=== PATIENT | male | born 1990 | race African-American/Black ===

== ENCOUNTER 2018-07-02 19:02 | Emergency (ER) | payer OTHER ==
--- NOTE | 2018-07-02 19:10 | EDPHY ---
H & P Stated Complaint: abd pain, nausea Time Seen by Provider: 07/02/18 19:09 - Personal History Current Tetanus Diphtheria and Acellular Pertussis (TDAP): Yes - Medical/Surgical History Hx Asthma: No Hx Chronic Respiratory Disease: No Hx Diabetes: No Hx Cardiac Disease: No Hx Renal Disease: No Hx Cirrhosis: No Hx Alcoholism: No Hx HIV/AIDS: No Hx Splenectomy or Spleen Trauma: No - Social History Smoking Status: Current every day smoker Constitutional: Initial Vital Signs Temperature (C) 36.9 C 07/02/18 19:05 Heart Rate 61 07/02/18 19:05 Respiratory Rate 20 07/02/18 19:05 Blood Pressure 132/72 H 07/02/18 19:05 O2 Sat (%) 100 07/02/18 19:05 O2 Delivery Mode Room Air Allergies/Adverse Reactions: No Known Allergies Allergy (Unverified 07/02/18 19:05) Home Medications: Medication Instructions Recorded Hydrocodone/APAP 5/325 [[place]t 1 - 2 each PO Q4-6PRN PRN #20 tab 07/02/18 5/325] Ondansetron Odt [Zofran Odt 4 mg 4 mg PO Q4 PRN #10 tab 07/02/18 (RX)] Medical Decision Making - Diagnostics Imaging Results: Imaging Impressions Abdomen CT 07/02/18 19:16 Impression: 1. Normal CT abdomen and pelvis with contrast enhancement. 2. No CT evidence of appendicitis, abscess or bowel obstruction. Findings discussed with Momo Madison MD at 20:11 hour, 07/02/2018. Imaging: Discussed imaging studies w/ call centre supervisor Radiologist, I viewed and interpreted images myself ED Course/Re-evaluation: CHIEF COMPLAINT: Abdominal pain HISTORY OF PRESENT ILLNESS: The patient is a 27 y/o male arriving with his family complaining of constant nausea and lower abdominal pain onset last night. He denies fever, diarrhea, recent illness, or recent trauma. He mentions his son recently had a vomiting illness. He is also requesting STI testing. REVIEW OF SYSTEMS: A comprehensive 10 system review of systems is otherwise negative aside from elements mentioned in the history of present illness and medical decision making. PHYSICAL EXAM: HR, BP, O2 Sat, RR. Temp noted General Appearance: Alert, well hydrated, appropriate, and non-toxic appearing. Head: Atraumatic without scalp tenderness or obvious injury Eyes: Pupils equal, round, reactive to light and accommodation, EOMI, no trauma , no injection. Nose: Atraumatic, no rhinorrhea, clear. Throat: Mucus membranes moist. Neck: Supple, nontender, no lymphadenopathy. Respiratory: No retractions, no distress, no wheezes, and no accessory muscle use. Lungs are clear to auscultation bilaterally. Cardiovascular: Regular rate and rhythm, no murmurs, rubs, or gallops. Good capillary refill all extremities. Gastrointestinal: Abdomen is soft, epigastric tenderness, non-distended, no masses, no rebound, no guarding, no peritoneal signs. Musculoskeletal: Normal active ROM of all extremities, atraumatic. Neurological: Alert, appropriate, and interactive. The patient has non-focal cranial nerves, motor, sensory, and cerebellar exam. Skin: No rashes, good turgor, no nodules on palpation. Past medical history: Denies Past surgical history: No abdominal surgeries Family history: Noncontributory Social history: and son at bedside. Lives in [place]. Student. DIAGNOSTICS/PROCEDURES/CRITICAL CARE TIME: Abdominal CT: nothing acute DIFFERENTIAL DIAGNOSIS: The differential diagnosis for the patient's abdominal pain included but was not limited to appendicitis, cholecystitis, hernias, testicular torsion, gastritis, and urinary tract infection. MEDICAL DECISION MAKING: This is a normally healthy 27 y/o male who presents with a 24-hour period of nausea and lower abdominal pain. He has epigastric tenderness on exam. Otherwise nothing acute. Plan for IV, labs, abdominal CT, and symptom management. 30mg IV Toradol, 1mg IV Dilaudid, 4mg IV Zofran, 1L IV NS ordered. CT is negative for acute process. Reevaluated patient and discussed findings. He is feeling improved. Recommended standard gastroenteritis care and follow up instructions. Return precautions discussed. He is comfortable with this plan. - Data Points Laboratory Results: Laboratory Results 07/02/18 19:30 07/02/18 19:30 07/02/18 07/02/18 07/02/18 19:33 19:30 19:30 WBC RBC Hgb POC Hgb 18.7 gm/dL H gm/dL (13.7-17.5) Hct POC Hct 55 % H % (40-51) MCV MCH MCHC RDW Plt Count MPV Neut % (Auto) Lymph % (Auto) Callaway % (Auto) Eos % (Auto) Baso % (Auto) Nucleat RBC Rel Count Absolute Neuts (auto) Absolute Lymphs (auto) Absolute Monos (auto) Absolute Eos (auto) Absolute Basos (auto) Absolute Nucleated RBC Immature Gran % Immature Gran # POC Sodium 141 mEq/L mEq/L (135-145) Sodium POC Potassium 4.2 mEq/L mEq/L (3.3-5.0) Potassium POC Chloride 98 mEq/L mEq/L (97-110) Chloride Carbon Dioxide Anion Gap POC BUN 6 mg/dL L mg/dL (7-23) BUN Creatinine POC Creatinine 1.5 mg/dL H mg/dL (0.7-1.3) Estimated GFR Glucose POC Glucose 108 mg/dL H mg/dL (70-100) Calcium Total Bilirubin Conjugated Bilirubin Unconjugated Bilirubin AST ALT Alkaline Phosphatase Total Protein Albumin Lipase RPR Resp to Therapy Pending HSV I&II IgM Ab Pending HIV 1&2 Antibody Pending 07/02/18 07/02/18 19:30 19:30 WBC 7.51 10^3/uL 10^3/uL (3.80-9.50) RBC 5.61 10^6/uL 10^6/uL (4.40-6.38) Hgb 17.3 g/dL g/dL (13.7-17.5) POC Hgb Hct 51.0 % % (40.0-51.0) POC Hct MCV 90.9 fL fL (81.5-99.8) MCH 30.8 pg pg (27.9-34.1) MCHC 33.9 g/dL g/dL (32.4-36.7) RDW 11.9 % % (11.5-15.2) Plt Count 236 10^3/uL 10^3/uL (150-400) MPV 10.5 fL fL (8.7-11.7) Neut % (Auto) 71.6 % % (39.3-74.2) Lymph % (Auto) 20.6 % % (15.0-45.0) Callaway % (Auto) 5.5 % % (4.5-13.0) Eos % (Auto) 1.7 % % (0.6-7.6) Baso % (Auto) 0.3 % % (0.3-1.7) Nucleat RBC Rel Count 0.0 % % (0.0-0.2) Absolute Neuts (auto) 5.38 10^3/uL 10^3/uL (1.70-6.50) Absolute Lymphs (auto) 1.55 10^3/uL 10^3/uL (1.00-3.00) Absolute Monos (auto) 0.41 10^3/uL 10^3/uL (0.30-0.80) Absolute Eos (auto) 0.13 10^3/uL 10^3/uL (0.03-0.40) Absolute Basos (auto) 0.02 10^3/uL 10^3/uL (0.02-0.10) Absolute Nucleated RBC 0.00 10^3/uL 10^3/uL (0-0.01) Immature Gran % 0.3 % % (0.0-1.1) Immature Gran # 0.02 10^3/uL 10^3/uL (0.00-0.10) POC Sodium Sodium 137 mEq/L mEq/L (135-145) POC Potassium Potassium 4.4 mEq/L mEq/L (3.3-5.0) POC Chloride Chloride 102 mEq/L mEq/L (97-110) Carbon Dioxide 26 mEq/l mEq/l (22-31) Anion Gap 9 mEq/L mEq/L (6-14) POC BUN BUN 7 mg/dL mg/dL (7-23) Creatinine 1.4 mg/dL H mg/dL (0.7-1.3) POC Creatinine Estimated GFR > 60 Glucose 110 mg/dL H mg/dL (70-100) POC Glucose Calcium 10.3 mg/dL mg/dL (8.5-10.4) Total Bilirubin 0.8 mg/dL mg/dL (0.1-1.4) Conjugated Bilirubin 0.2 mg/dL mg/dL (0.0-0.5) Unconjugated Bilirubin 0.6 mg/dL mg/dL (0.0-1.1) AST 41 IU/L IU/L (17-59) ALT 61 IU/L IU/L (21-72) Alkaline Phosphatase 94 IU/L IU/L (38-126) Total Protein 7.9 g/dL g/dL (6.3-8.2) Albumin 4.6 g/dL g/dL (3.5-5.0) Lipase 88 IU/L IU/L (23-300) RPR Resp to Therapy HSV I&II IgM Ab HIV 1&2 Antibody Medications Given: Discontinued Medications Hydromorphone HCl (Dilaudid) 1 mg IVP EDNOW ONE Stop: 07/02/18 19:17 Last Admin: 07/02/18 19:31 Dose: 1 mg Sodium Chloride (Ns) 1,000 mls @ 0 mls/hr IV EDNOW ONE; Wide Open PRN Reason: Protocol Stop: 07/02/18 19:17 Last Admin: 07/02/18 19:31 Dose: 1,000 mls Sodium Chloride (Ns) 1,000 mls @ 0 mls/hr IV EDNOW ONE; Wide Open PRN Reason: Protocol Stop: 07/02/18 19:39 Last Admin: 07/02/18 19:39 Dose: 1,000 mls Ketorolac Tromethamine (Toradol) 30 mg IVP EDNOW ONE Stop: 07/02/18 19:17 Last Admin: 07/02/18 19:31 Dose: 30 mg Ondansetron HCl (Zofran) 4 mg IVP EDNOW ONE Stop: 07/02/18 19:17 Last Admin: 07/02/18 19:31 Dose: 4 mg Point of Care Test Results: Chemistry 07/02/18 19:33 POC Sodium 141 mEq/L mEq/L (135-145) POC Potassium 4.2 mEq/L mEq/L (3.3-5.0) POC Chloride 98 mEq/L mEq/L (97-110) POC BUN 6 mg/dL L mg/dL (7-23) POC Creatinine 1.5 mg/dL H mg/dL (0.7-1.3) POC Glucose 108 mg/dL H mg/dL (70-100) ISTAT H&H 07/02/18 19:33 POC Hgb 18.7 gm/dL H gm/dL (13.7-17.5) POC Hct 55 % H % (40-51) Departure - Departure Disposition: Home, Routine, Self-Care Clinical Impression: Gastroenteritis Condition: Good Instructions: Gastroenteritis (ED) Additional Instructions: Follow up with your primary care provider for symptoms unimproved over the next 2-3 days. Call back in 24-48 hours for the rest of your lab results. Return to the ED for worsening of condition. Referrals: Mj Connolly MD [Medical Doctor] - As per Instructions Prescriptions: Hydrocodone/APAP 5/325 [[place] 5/325] 1 - 2 each PO Q4-6PRN PRN #20 tab PRN Reason: Pain, Moderate Ondansetron Odt [Zofran Odt 4 mg (RX)] 4 mg PO Q4 PRN #10 tab PRN Reason: Nausea/Vomiting, Use 1st Report Scribed for: Momo Madison Report Scribed by: Radha Chen Date of Report: 07/02/18 Time of Report: 19:23
[2018-07-02] MEDS ORDERED: KETOROLAC 30 MG/1 ML SDV IVP ONE (19:16)
[2018-07-02] MEDS ORDERED: HYDROmorphONE/DILAUDID 2 MG/ML INJ IVP ONE (19:16)
[2018-07-02] MEDS ORDERED: ONDANSETRON 4 MG/2 ML VIAL IVP ONE (19:16)
[2018-07-02] MEDS ORDERED: NS 1,000 ML IV ONE ×2 (19:16→19:38)
[2018-07-02] MEDS ORDERED: IOPAMIDOL (ISOVUE-300) 100 ML BTL ONE (19:38)
[2018-07-02 19:44] LABS: PLATELET COUNT 236 10^3/uL (150-400)
[2018-07-02] MEDS ORDERED: HYDROCOD/APAP 5/325 PREPACK#6 BTL TAKEHOME ONE ×2 (20:44→20:45)
[2018-07-02] MEDS ORDERED: ONDANSETRON 4MG PREPACK#2 BTL TAKEHOME ONE ×2 (20:44→20:45)
[2018-07-02 20:52] VITALS: BP 131/48
[2018-07-02 21:05] LABS: HIV TYPE 1 AND 2 NEGATIVE (NEGATIVE)
[2018-07-05 11:21] LABS: GC AMPLIFICATION GENPROBE NEGATIVE (NEGATIVE)
== END 2018-07-02 21:02 | disposition home or self-care (01) ==
DX: K52.9 Noninfective gastroenteritis and colitis, unspecified (principal); E86.9 Volume depletion, unspecified; F17.200 Nicotine dependence, unspecified, uncomplicated
CPT/HCPCS: 82435-PO; 82565-PO; 82947-PO; 84132-PO; 84295-PO; 84520-PO; 85014-PO; 86694-90; 96374; J1170; J1885; J2405; Q9967